=== PATIENT | female | born 1945 | race Native Hawaiian/Other Pacific Islander ===

== ENCOUNTER 2022-03-18 11:01 | Outpatient (CLI) | payer OTHER | END 2022-03-18 19:01 | disposition home or self-care (01) | LOC: NM 11:01 | PROVIDERS: ATTEND Specialist | DX: I25.10 Atherosclerotic heart disease of native coronary artery without angina pectoris (principal); I10 Essential (primary) hypertension; E78.2 Mixed hyperlipidemia; I34.0 Nonrheumatic mitral (valve) insufficiency; I36.1 Nonrheumatic tricuspid (valve) insufficiency; E11.9 Type 2 diabetes mellitus without complications; R00.2 Palpitations ==

== ENCOUNTER 2022-10-07 08:53 | Outpatient (CLI) | payer OTHER ==
[~2022-10-07] VITALS: Ht 165.1 cm; Wt 58.1 kg
== END 2022-10-07 19:05 | disposition home or self-care (01) ==
LOC: NM 08:53
PROVIDERS: ATTEND Nurse Practitioner
DX: I25.10 Atherosclerotic heart disease of native coronary artery without angina pectoris (principal)
CPT/HCPCS: A9500; J2785